=== PATIENT | female | born 1970 | race Caucasian/White ===

== ENCOUNTER 2018-10-24 15:27 | Inpatient (IN) ==
[2018-10-24] MEDS ORDERED: Haloperidol Lactate 5 MG/ML VIAL IM PRN (15:32)
[2018-10-24] MEDS ORDERED: *HR* LORazepam 2 MG/ML VIAL IM PRN (15:32)
[2018-10-24] MEDS ORDERED: MOM Conc 10 ML UD.LIQ PO PRN (15:32)
[2018-10-24] MEDS ORDERED: Mag Hydrox/Al Hydrox/Simeth 30 ML UDC PO PRN (15:32)
[2018-10-24] MEDS ORDERED: *HR* LORazepam 1 MG TABLET PO PRN (15:32)
[2018-10-24] MEDS: hydrOXYzine pamoate 25 MG CAPSULE PO PRN ×2 (17:40→20:34)
[2018-10-24] MEDS: traZODone 50 MG TABLET PO PRN (20:34)
[2018-10-25] MEDS: hydrOXYzine pamoate 25 MG CAPSULE PO PRN ×2 (09:03→20:25)
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
[2018-10-25] MEDS: risperiDONE 0.25 MG TABLET PO SCH ×2 (09:46→20:26)
[2018-10-25] MEDS: traZODone 50 MG TABLET PO PRN (20:25)
[2018-10-26] MEDS: risperiDONE 0.25 MG TABLET PO SCH ×2 (08:43→20:25)
--- NOTE | 2018-10-26 09:39 | Psychiatry Progress Note ---
Date of Encounter: 10/26/18 Time of Encounter: 09:36 Subjective Interval history: Client reports she is tired today but otherwise doing ok. Denies SI. Rather vague and guarded with responses to questions but seems to be thinking clearer. Will go ahead and start Prozac today for mood. Some lingering psychosis but suspect symptoms are all related to meth use. Wants to leave but does not have anywhere safe to go. Has not been engaged in discharge planning yet. Review of Systems Constitutional: Denies: fever, chills, weakness, weight change Eyes: Denies: eye pain, vision change Ears, Nose, Throat: Denies: ear pain, throat pain, dental pain, hearing loss, congestion Cardiovascular: Denies: chest pain, palpitations, dyspnea on exertion Respiratory: Denies: cough, dyspnea, wheezes Gastrointestinal: Denies: abdominal pain, nausea, vomiting, diarrhea, constipation Musculoskeletal: Denies: joint swelling, joint pain Neurological: Denies: headache, weakness, numbness, memory loss Results - Vital Signs Vital Signs: Temp Pulse Resp BP Pulse Ox 97.3 F L 62 18 126/82 100 10/26/18 09:00 10/26/18 09:00 10/26/18 09:00 10/26/18 09:00 10/26/18 09:00 Assessment and Plan (1) Methamphetamine-induced psychotic disorder Current visit: No Status: Acute Risks, benefits, side effects, alternatives discussed w/pt: Yes Patient agreeable to treatment: Yes (2) Major depressive disorder, recurrent Current visit: No Status: Acute Risks, benefits, side effects, alternatives discussed w/pt: Yes Patient agreeable to treatment: Yes Qualifiers: Active/Remission status: currently active Major depression episode severity: severe Psychotic features: without psychotic features Qualified Code(s): F33.2 - Major depressive disorder, recurrent severe without psychotic features (3) Methamphetamine abuse Current visit: No Status: Acute Risks, benefits, side effects, alternatives discussed w/pt: Yes Patient agreea ble to treatment: Yes Consult Discharge Plan - Plan Referrals: NONE,PCP [Primary Care Provider] - Psychiatry Exam - Constitutional Vitals: Temp Pulse Resp BP Pulse Ox 97.3 F L 62 18 126/82 100 10/26/18 09:00 10/26/18 09:00 10/26/18 09:00 10/26/18 09:00 10/26/18 09:00 General appearance: disheveled - Musculoskeletal Gait: normal Station: relaxed Strength & Tone: normal for patient - Psychiatric Patient Orientation: Yes Person, Yes Time, Yes Place Level of alertness: Alert Behavior: calm, cooperative Psychomotor activity: Normal Eye Contact: Minimal Contact Mood Description: Irritable Affect description: congruent with mood Speech Volume: Normal Speech pattern: mumbled Language & Vocabulary: consistent with education Thought Process: Linear Thought Content: No Suicidal ideation, No Homicidal ideation, No Overt delusions Perceptual Disturbances: Yes Auditory hallucinations, Yes Visual hallucinations Attention Span Ability: Capable of Focused Attention Memory Description: Immediate Intact, Recent Impaired, Remote Intact Patient Reliability: Questionable Historian Fund of knowledge: Yes abstraction ability, Yes aware of current events Intelligence Estimate: Average Judgment: Limited Insight: Minimal
[2018-10-26] MEDS: Nicotine 2 MG GUM BC PRN ×3 (09:48→17:47)
[2018-10-26] MEDS: FLUoxetine 20 MG CAPSULE PO SCH (10:44)
[2018-10-26] MEDS: traZODone 50 MG TABLET PO PRN (20:25)
[2018-10-26] MEDS: hydrOXYzine pamoate 25 MG CAPSULE PO PRN (20:25)
[2018-10-27] MEDS: FLUoxetine 20 MG CAPSULE PO SCH (08:25)
[2018-10-27] MEDS: risperiDONE 0.25 MG TABLET PO SCH (08:25)
[2018-10-27] MEDS: Nicotine 2 MG GUM BC PRN ×2 (08:27→10:38)
--- NOTE | 2018-10-27 09:07 | Discharge Summary ---
Date of Encounter: 10/27/18 Time of Encounter: 09:04 Diagnosis - Discharge Diagnosis (1) Methamphetamine-induced psychotic disorder Status: Acute (2) Major depressive disorder, recurrent Status: Acute Qualifiers: Active/Remission status: currently active Major depression episode severity: severe Psychotic features: without psychotic features Qualified Code(s): F33.2 - Major depressive disorder, recurrent severe without psychotic features (3) Methamphetamine abuse Status: Acute Medications - Discharge Medications Prescriptions: FLUoxetine HCl [Prozac] 20 mg PO DAILY #30 capsule risperiDONE [RisperDAL] 0.5 mg PO BID #60 tablet Gabapentin [Neurontin] 600 mg PO HS 10/23/18 [History] FLUoxetine HCl [Prozac] 20 mg PO DAILY #30 capsule 10/27/18 [Rx] risperiDONE [RisperDAL] 0.5 mg PO BID #60 tablet 10/27/18 [Rx] Allergy/AdvReac Type Severity Reaction Status Date / Time No Known Allergies Allergy Verified 10/23/18 12:56 Provider Date of admission: 10/24/18 15:27 Primary care physician: PCP NONE Discharging clinician: Veronica Soliman Psychiatry Exam - Constitutional Vitals: Temp Pulse Resp BP Pulse Ox 97.9 F 94 18 130/86 99 10/26/18 19:29 10/26/18 19:29 10/26/18 19:29 10/26/18 19:29 10/26/18 19:29 General appearance: age & developmentally appropriate, well-groomed, well- nourished - Musculoskeletal Gait: normal Station: relaxed Strength & Tone: normal for patient - Psychiatric Patient Orientation: Yes Person, Yes Time, Yes Place Level of alertness: Alert Behavior: calm, cooperative Psychomotor activity: Normal Eye Contact: Maintains Eye Contact Mood Description: Euthymic/stable Affect description: congruent with mood Speech Volume: Normal Speech pattern: mumbled Language & Vocabulary: consistent with education Thought Process: Linear, Goal Oriented Thought Content: No Suicidal ideation, No Homicidal ideation, No Overt delusions Perceptual Disturbances: No Auditory hallucinations, No Visual hallucinations Attention Span Ability: Capable of Focused Attention Memory Description: Grossly Intact Patient Reliability: Questionable Historian Fund of knowledge: Yes abstraction ability, Yes aware of current events Intelligence Estimate: Average Judgment: Limited Insight: Partial Hospital Course Hospital course: Ms. Bran is a 48 year old female who was admitted secondary to meth induced psychosis and vague SI. On the unit client consistently denied suicidal ideation, intent, or plan. She initially appeared to be withdrawing from methamphetamines. She was agitated, irritable, and picking at scabs on her skin. She was started on Risperdal and Prozac with good clinical effect. Today she is thinking clearly. Speech is still mumbled but overall much easier to understand. Mood appears stable. She is smiling and making eye contact. Client able to arrange her own discharge plan. Contacted a friend, Malathi, who has agreed to let client live with her. Client reports this is safe housing for her as her friend is older and [place]. No drugs in the home or distractions nearby. Client is already established with a counselor. Client denies SI/HI/AH/VH today. She is much better groomed. She has been out socializing on the unit. Staff report she is entitled at times but able to make her needs known without issue. - Time Spent with Patient Total time spent providing and/or coordinating discharge services: Assessment and Plan - Patient/Caregiver Discharge Instructions Activity: resume usual activities as tolerated Diet: regular diet - Follow up Plan Follow up with: NONE,PCP [Primary Care Provider] - Functional capacity at discharge: independent ambulation Overall status at discharge: Stable Disposition: Home, Self-Care Quality - Multiple Antipsychotics Patient discharged on 2 or more antipsychotic medications: No Procedures - Procedures Procedures: Medication Management, Crisis Stabilization, Supportive Therapy, Group Therapy
[2018-10-27 10:44] VITALS: BP 118/80
== END 2018-10-27 11:00 | disposition home or self-care (01) | DRG 751 ==
LOC: 1ANU 15:27
PROVIDERS: ADMIT General Practice; ATTEND General Practice